=== PATIENT | male | born 1985 | race Caucasian/White ===

== ENCOUNTER 2021-11-14 08:46 | Emergency (ER) | payer MEDICAID ==
[~2021-11-14] VITALS: Ht 182.9 cm; Wt 63.6 kg
[2021-11-14] MEDS ORDERED: METF-1211 PO (09:14)
[2021-11-14] MEDS ORDERED: SIMV-259 PO (09:14)
[2021-11-14 10:04] LABS: COVID AG,FIA SOURCE NASAL SWAB
[2021-11-14 10:33] LABS: INFLUENZA TYPE A NEGATIVE FOR TYPE A (NEGATIVE); INFLUENZA TYPE B NEGATIVE FOR TYPE B (NEGATIVE)
[2021-11-14] MEDS ORDERED: ACETAMINOPHEN 500 MG TABLET PO ONE (10:45)
[2021-11-14 11:34] VITALS: BP 135/74
== END 2021-11-14 11:45 | disposition home or self-care (01) ==
LOC: EMS 08:46
DX: U07.1 COVID-19 (principal); E78.00 Pure hypercholesterolemia, unspecified
CPT/HCPCS: 87804; 99283